=== PATIENT | female | born 1970 | race Hispanic/Latino ===

== ENCOUNTER 2018-04-03 21:26 | Emergency (ER) | payer BC ==
[2018-04-03 21:27] VITALS: BMI 38.3
[2018-04-03 21:38] VITALS: TEMP 98.5
[2018-04-03] MEDS ORDERED: Albuterol-Ipratrop 3 mg / 0.5 (3 ml) UD ONE ×2 (21:57→22:18)
--- NOTE | 2018-04-03 21:57 | ED PDOC ---
HPI: SOB/CHF/COPD Chief Complaint (Provider): SOB due to asthma attack History Per: Patient Onset/Duration Of Symptoms: Days (2) Current Symptoms Are (Timing): Still Present Initiating Event: Out Of Medications Quality: Aching, Tightness, Pressure Current Respiratory Medications: Albuterol Severity: None Pain Scale Rating Of: 0 Associated Symptoms: Chest Pain, Light-headedness. denies: Fever, Chills, Sweating, Dizziness Additional History Per: Patient <Ayush Hines - Last Filed: 04/03/18 23:28> <Francheska Latham - Last Filed: 04/05/18 10:17> Time Seen by Provider: 04/03/18 21:39 Chief Complaint (Nursing): Shortness Of Breath Additional Complaint(s): Pt is a 47 yo f with PMH of astham, htn present today due to SOB. Pt state that she is having SOB for the past 2 days due to her asthma. Pt state that she ran out of her medication Spiriva, Qvar for the past week and her albuterol solution for past 2 days. She also state that she had some seasonal allergy with congestion and that had triggered her asthma exacerbation. Pt state that she have had been feeling dizzy and with headache since morning but have resolved. She also feel tightness in her chest. Pt state that she have been having the same problem multiple times and most of them happen when she forget to order her medication online, she normally comes to the ER to manage it with albuterol and steroid. Pt denies LOC, nausea, vomiting, abdominal pain, diarrhea, constipation, dysuria, polyuria hematuria or any other complain. ( Ayush Hines) Supervising Attending Note <Ayush Hines - Last Filed: 04/03/18 23:28> - Supervising Attending Note The Documented history was done by the: Physician Power Shovel Operator, Attending Physician The documented physical exam was done by the: Physician Power Shovel Operator, Attending Physician - Attestation: I have personally seen and examined this patient.: Yes I have fully participated in the care of the patient.: Yes I have reviewed all pertinent clinical information, including history, physical exam and plan: Yes <Francheska Latham - Last Filed: 04/05/18 10:17> - Notes: Notes:: Wheezing, marked improvement with ER treatment. (Francheska Latham) Past Medical History Reviewed: Historical Data, Nursing Documentation, Vital Signs - Medical History PMH: Arthritis ([place] KNEE), Asthma, HTN, Peripheral Edema Denies: HIV, Chronic Kidney Disease - Surgical History Surgical History: No Surg Hx - Family History Family History: States: Unknown Family Hx - Living Arrangements Living Arrangements: With Family - Social History Ex-Smoker (has not smoked in the last 12 months): No Alcohol: Social Drugs: Denies <Ayush Hines - Last Filed: 04/03/18 23:28> <Francheska Latham - Last Filed: 04/05/18 10:17> Vital Signs: Last Vital Signs Temp 98.5 F 04/03/18 21:34 Pulse 91 H 04/03/18 23:30 Resp 17 04/03/18 23:30 BP 129/83 04/03/18 23:30 Pulse Ox 98 04/03/18 23:30 - Home Medications Home Medications: Ambulatory Orders Medication Instructions Recorded Albuterol Sulfate [Albuterol 3 ml IH Q6H PRN 10/03/14 Sulfate 2.5mg/3 ml 0.083%] Beclomethasone Dipropionate 80 mcg IH Q12 10/03/14 [Vancenase Aq Double Strength] Bisacodyl 10 mg RC DAILY PRN 10/03/14 Celecoxib [celeBREX] 200 mg PO DAILY 10/03/14 Docusate Sodium [Colace] 100 mg PO TID 10/03/14 Olmesartan/Amlodipin/Hcthiazid 1 tab PO 10/03/14 [Tribenzor 40-10-25 mg Tablet] Tiotropium [place] [Spiriva] 18 mcg IH HS 10/03/14 Enoxaparin [Lovenox] 30 mg SC Q12 #0 syr 10/13/14 Ferrous Sulfate [Feosol] 324 mg PO BID #0 ect 10/13/14 Oxycodone HCl [Oxycontin] 10 mg PO Q12 #0 ter 10/13/14 oxyCODONE [oxyCONTIN] 10 mg PO Q12 #30 ter 10/13/14 Albuterol 0.083% [Albuterol 3 ml IH Q4 PRN #20 neb 04/03/18 Sulfate 3 Ml] Prednisone 50 mg PO DAILY #4 tablet 04/03/18 - Allergies Allergies/Adverse Reactions: Allergies Allergy/AdvReac Type Severity Reaction Status Date / Time Penicillins Allergy RASH Verified 04/03/18 21:38 Curb-65 Severity Score - CURB-65 Severity Score Confusion: No Bun >19mg/dl (>7mmol/L): No Respiratory Rate greater than/equal to 30: No Systolic BP <90 or Diastolic BP less than/equal 60mmHg: No Age >64: No Curb-65 Score: 0 Percentage 30-day mortality: 0.6% <Ayden Ronny Pachecof - Last Filed: 04/03/18 23:28> Wells Criteria for PE - Wells Criteria for Pulmonary Embolism Clinical Signs and Symptoms of DVT: No P.E is #1 Diagnosis, or Equally Likely: No Heart Rate >100: No Immobilization at least 3 days;Surgery previous 4 weeks: No Previous, objectively diagnosed PE or DVT: No Hemoptysis: No Malignancy w/treatment within 6 months, or palliative: No Total Score: 0 <Ayden EribertokamillaAyush - Last Filed: 04/03/18 23:28> Review of Systems ROS Statement: Except As Marked, All Systems Reviewed And Found Negative Constitutional: Negative for: Fever, Chills, Sweats Eyes: Negative for: Pain ENT: Positive for: Nose Congestion. Negative for: Ear Pain Cardiovascular: Positive for: Chest Pain Respiratory: Positive for: Shortness of Breath, Wheezing. Negative for: Sputum Gastrointestinal: Negative for: Nausea, Vomiting, Abdominal Pain, Diarrhea Genitourinary Female: Negative for: Dysuria, Frequency, Incontinence Musculoskeletal: Negative for: Neck Pain, Shoulder Pain, Arm Pain Neurological: Negative for: Weakness, Numbness, Confusion, Altered Mental Status <Ayden EribertokamillaLilibethAyush - Last Filed: 04/03/18 23:28> Physical Exam - Reviewed Nursing Documentation Reviewed: Yes Vital Signs Reviewed: Yes - Physical Exam Appears: Positive for: Well, Non-toxic, No Acute Distress Head Exam: Positive for: ATRAUMATIC, NORMAL INSPECTION, NORMOCEPHALIC Skin: Positive for: Normal Color, Warm, Dry Eye Exam: Positive for: Normal appearance ENT: Positive for: Normal ENT Inspection Neck: Positive for: Normal Cardiovascular/Chest: Positive for: Regular Rate, Rhythm Respiratory: Positive for: Crackles, Wheezing. Negative for: Accessory Muscle Use, Respiratory Distress Gastrointestinal/Abdominal: Positive for: Normal Exam, Bowel Sounds, Soft Extremity: Positive for: Normal ROM Neurologic/Psych: Positive for: Alert, Oriented, Mood/Affect <Ayush Hines - Last Filed: 04/03/18 23:28> - ECG O2 Sat by Pulse Oximetry: 98 <Ayush Hines - Last Filed: 04/03/18 23:28> Medical Decision Making <Ayush Hines - Last Filed: 04/03/18 23:28> <Francheska Latham - Last Filed: 04/05/18 10:17> Medical Decision Making: Time 22:15 Initial assessment: 47 yo female with PMH of HTN, ashtma present today due to SOB most likely due to Astham exacerbation VItals: WNL PE: lung exam : wheezing all quadrant, other WNL Peak flow : 100 Plan: Albuterol 9ml inhaler Solumedrol 125 mg IM Time 23:15 Re-assessment Pt is seen and revaluated Pt is feeling better, she denies having SOB, chest pain, palpitation or any other symptoms. Pt comfortable to go home PE: pt is laying comfortable with no acute distress. lung exam: no extra respiratory muscle use. lung sound improved, decrease wheezing in all quadrant. Peak flow improving, last exam was 350 Pt received albuterol inhaler and solumedrol Plan Discharge patient to home, with prescription of albuterol and prednisone for 4 days. Adult asthma information were given to pt Pt should f/u with primary care doctor in next 3 days If symptoms worsen return to ER (Ronny Hinesf) Disposition - Patient ED Disposition Is Patient to be Admitted: No Counseled Patient/Family Regarding: Diagnosis, Need For Followup, Rx Given - Disposition Disposition: Routine/Home Disposition Time: 23:05 <Lilibeth Hinessef - Last Filed: 04/03/18 23:28> <Francheska Latham - Last Filed: 04/05/18 10:17> - Clinical Impression Clinical Impression: Asthma exacerbation, Asthma - Disposition Condition: IMPROVED Additional Instructions: Follow up with primary care doctor in 3 days Take medication as prescribed and rest Prescriptions: Albuterol 0.083% [Albuterol Sulfate 3 Ml] 3 ml IH Q4 PRN #20 neb PRN Reason: asthma Prednisone 50 mg PO DAILY #4 tablet Instructions: Asthma, Adult (DC) Forms: [employer] ([place]), [facility] ED School/Work Excuse
[2018-04-03] MEDS ORDERED: Albuterol-Ipratrop 3 mg / 0.5 (3 ml) UD INH STA (22:02)
[2018-04-03 22:13] VITALS: O2SAT 98
[2018-04-03 23:31] VITALS: BP 129/83; PULSE 91; RESP 17
== END 2018-04-03 23:31 | disposition home or self-care (01) ==
LOC: H.ER 21:26
DX: J45.901 Unspecified asthma with (acute) exacerbation (principal); I10 Essential (primary) hypertension; Z88.0 Allergy status to penicillin
CPT/HCPCS: 81025; 94640; 96372; 99283; J2930